=== PATIENT | male | born 1975 | race African-American/Black ===

== ENCOUNTER 2018-02-17 15:44 | Emergency (ER) | payer BC, OTHER ==
[2018-02-17 16:17] LABS: ADD MAN DIFF? NO
[2018-02-17] MEDS: ONDANSETRON 4 MG INJ IV (16:23)
[2018-02-17] MEDS: morphine 4 MG/ML VIAL IV (16:23)
[2018-02-17] MEDS: KETOROLAC 30 MG INJ IV (16:23)
[2018-02-17 16:25] LABS: WHITE BLOOD COUNT 5.9 10^3/ul (4.8-10.8)
[2018-02-17 16:25] LABS: BASOPHILS % 0.5 % (0.0-2.0); EOSINOPHILS # 0.1 10^3/ul (0.0-0.5); HEMATOCRIT 44.1 % (42.0-52.0); HEMOGLOBIN 14.4 g/dl (14.0-18.0); LYMPHOCYTES # 2.4 10^3/ul (0.8-2.9); LYMPHOCYTES % 40.7 % (15.0-51.0); MEAN CORPUSCULAR HEMOGLOBIN 23.3 pg (29.0-33.0); MEAN CORPUSCULAR HGB CONC 32.7 g/dl (32.0-37.0); MEAN CORPUSCULAR VOLUME 71.2 fl (82.0-101.0); MEAN PLATELET VOLUME 10.9 fl (7.4-10.4); MONOCYTE # 0.5 10^3/ul (0.3-0.9); MONOCYTES % 7.8 % (0.0-11.0); NEUTROPHIL # 2.9 10^3/ul (1.6-7.5); NEUTROPHILS % 49.5 % (39.0-77.0); PLATELET COUNT 248 10^3/UL (140-415); RED BLOOD COUNT 6.19 10^6/ul (4.70-6.10); RED CELL DISTRIBUTION WIDTH 15.8 % (11.5-14.5)
[2018-02-17 16:46] LABS: INR 0.89; PROTIME 12.2 Sec (11.9-14.9)
[2018-02-17 16:47] LABS: PARTIAL THROMBOPLASTIN TIME 28.3 Sec (23.0-35.0)
[2018-02-17 16:48] LABS: ANION GAP 13 (5-13); BLOOD UREA NITROGEN 9 mg/dl (7-20); CALCIUM 9.3 mg/dl (8.4-10.2); CARBON DIOXIDE 27 mmol/L (21-31); CHLORIDE 101 mmol/L (97-110); CREATININE 0.83 mg/dl (0.61-1.24); Estimated GFR > 60 mL/min (>60); GLUCOSE 102 mg/dl (70-220); POTASSIUM 4.1 mmol/L (3.5-5.1); SODIUM 141 mmol/L (135-144)
[2018-02-17 16:49] LABS: D-DIMER 443.58 ng/ml (<460)
[2018-02-17 16:59] LABS: TROPONIN-I < 0.012 ng/ml (0.000-0.120)
== END 2018-02-17 18:28 | disposition home or self-care (01) ==
LOC: E/R 15:44
DX: M62.838 Other muscle spasm (principal); R07.9 Chest pain, unspecified
CPT/HCPCS: 36415; 71045; 72125; 80048; 84484; 85025; 85378; 85610; 85730; 93005; 96374; 96375; 99285-25